=== PATIENT | male | born 1940 | race Caucasian/White ===

== ENCOUNTER 2019-07-21 19:05 | Observation (INO) | payer MEDICARE, SELFPAY ==
--- NOTE | ~2019-07-21 | XR_ITS ---
EXAMINATION: XR bone survey comp/metastic DATE: 07/23/2019 14:37 INDICATION: Multiple myeloma. TECHNIQUE: 28 views of a skeletal survey were obtained. COMPARISON: CT thoracic and lumbar spine 07/21/2019 FINDINGS: There are small lytic lesions in proximal right humerus and right scapula. There are lytic lesions in proximal left humerus. There is a large lytic lesion involving left fourth rib. Surgical c lips in the right upper quadrant are likely from cholecystectomy. There are scattered lytic lesions i n the pelvis and proximal femora. There is a lytic lesion of T11 spinous process. Most of the lytic l esions seen on the prior CT of the spine are not visible on radiographs. IMPRESSION: 1. Lytic lesions of bone, consistent with multiple myeloma. Reviewed, dictated and finalized at location A. F OF PLANNING
--- NOTE | ~2019-07-21 | US_ITS ---
EXAMINATION: 1. CT biopsy bone superficial 2. US soft tissue lower back DATE: 07/22/2019 13:09 INDICATION: Lytic lesion in right ilium. TECHNIQUE: The procedure including the risks, benefits, and alternatives was discussed with the patie nt. Risks discussed included bleeding and infection. The patient verbalized understanding of the risk s and agreed to proceed. The lesion was not well visualized under ultrasound. The patient was then t aken to the CT scanner. The skin overlying the right ilium was prepped and draped in usual sterile fa shion. Anesthetic was administered with 1% lidocaine subcutaneously. A 16 gauge outer needle was ad vanced under CT guidance to the lytic lesion of right ilium. An 18 gauge core biopsy needle was then used to obtain 3 core biopsy specimens. The mA was adjusted according to patient size. Iterative lala nstruction technique was employed. The dose-length product was 115.19 mGy-cm. The needle was removed and the entry site was cleaned and dressed. There were no immediate complications. FINDINGS: Ultrasound images do not show confident visualization of the lytic lesion of right ilium. C T images demonstrate the outer needle tip adjacent to a 2.4 cm mass in right ilium. IMPRESSION: 1. CT-guided core needle biopsy of a 2.4 cm mass in right ilium. Reviewed, dictated and finalized at location A. GER CONFIGURATION IMPRESSION: 1. CT-guided core needle biopsy of a 2.4 cm mass in right ilium.
--- NOTE | ~2019-07-21 | CT_ITS ---
EXAMINATION: CT thoracic lumbar wo con DATE: 07/21/2019 21:14 INDICATION: Back pain TECHNIQUE: Computed tomography (CT) of the second lumbar spine was performed without intravenous cont rast. Sagittal and coronal reconstructions were performed. Automated exposure control and iterative r econstruction technique were employed. The dose-length product was 1030 mGy-cm. COMPARISON: Thoracic and abdominal CTA dated 09/05/2013 FINDINGS: There are innumerable lytic bone lesions throughout the thoracic and lumbar spine as well as multiple ribs, the bilateral scapulae and throughout the pelvis. A few of the largest include lesions occupyi ng a significant portion of the T1, T7 and L3 vertebral bodies, lesion occupying nearly the entire po sterior elements and right posterior vertebral body of T11 and an approximately 3.6 x 2.5 cm lesion i n the right supra-acetabular region. There are also lesions eroding through the cortices at the bilat eral posterior iliac spines, the one on the right which would be the most amenable lesion for percuta neous biopsy. There is a compression fracture underlying the anterior superior endplate of L1 with <20% anterior ve rtebral body height loss. Remaining vertebral body heights and the thoracic and lumbar spine. Relativ jackie preserved with no other fractures identified. There is relatively mild thoracic and lumbar spondy losis. Several of the lytic lesions however extrinsic to the cortices of the vertebrae appear to encr oach upon the central canal which is likely most severely affected at T11. Respiratory motion in the visualized lungs with mild dependent atelectasis in the bilateral lower lob es. No evident pulmonary infiltrates, suspicious pulmonary nodules or pleural effusion. No pathologic ally enlarged lymphadenopathy seen in the visualized mediastinum, abdomen or pelvis. Calcified gallst ones in the dependent aspect of the distal common bile duct. The common bile duct is at the upper schwartz its of normal for age measuring 9 mm in maximal diameter. Numerous dystrophic calcific a cyst. The pa ncreas consistent with sequela of chronic pancreatitis. IMPRESSION: 1. Innumerable lytic bone lesions throughout the axial and appendicular skeleton consistent with mult iple myeloma or widespread metastatic disease. The lesion at the right posterior iliac spine would be the most amenable to percutaneous biopsy. 2. Likely pathologic mild L1 compression fracture with <20% anterior vertebral body height loss. 3. Several of the spinal lesions likely encroach upon the central canal most prominently at T11 where it almost certainly results in significant central canal stenosis. 4. Choledocholithiasis with common bile duct measuring 9 mm at the upper limits of normal for age. Co rrelate with liver function tests. Reviewed, dictated and finalized at location A. OR QC TECHNICIAN IMPRESSION: 1. Innumerable lytic bone lesions throughout the axial and appendicular skeleto n consistent with multiple myeloma or widespread metastatic disease. The lesion at the right posterior iliac spine would be the most amenable to percutaneous biopsy. 2. Likely pathologic mild L1 compression fracture with <20% anterior vertebral body height loss. 3. Several of the spinal lesions likely encroach upon the central canal most pr ominently at T11 where it almost certainly results in significant central canal stenosis. 4. Choledocholithiasis with common bile duct measuring 9 mm at the upper limits of normal for age. Correlate with liver function tests.
[2019-07-21 19:13] VITALS: BP 136/70; PULSE 109; RESP 20; O2SAT 98
--- NOTE | 2019-07-21 19:21 | PC.NURSE ---
After triage-pt stated he was nauseated and felt like he could vomit. also stated he felt weak after taking hie pain meds. states pt is very hard of hearing.
--- NOTE | 2019-07-21 19:22 | PC.NURSE ---
After triage note entered, pt went to waiting room. Pt's stating pt started to feel nauseated and felt like he was goint to vomit. also stated pt took pain meds prior to coming to ED and now feels weak
[2019-07-21 19:47] VITALS: BP 137/71; PULSE 97; RESP 13; O2SAT 97
--- NOTE | 2019-07-21 20:20 | ED.BACK ---
HPI - Back Pain/Injury General Chief Complaint: Back Pain/Injury Stated Complaint: back pain Time Seen by Provider: 07/21/19 20:10 Source: patient, family and RN notes reviewed Mode of arrival: ambulatory Limitations: no limitations History of Present Illness HPI Narrative: Pt is a 79 y/o male who presents to the ED with c/o worsening diffuse low back pain starting several months ago. He notes that he hasn't had any recent falls or injuries within the past several months that could have caused his pain. Pt notes that he has been evaluated by his PCP previously for this pain, and states that he received a negative lumbar spine X-Ray. Pt notes that he is prescribed Hydrocodone for his pain. His family states that his pain only alleviates for roughly 1 hour with the medication. Pt notes that he has been able to walk, but states that doing so aggravates his pain. He also notes that his pain intermittently radiates into his bilateral groin. Pt states that he just began physical therapy earlier today, and notes that his pain worsened shortly after returning home from physical therapy this evening. He currently denies any fever, chills, or urinary symptoms. MD elicited complaint: back pain Onset (ago): month(s) (several) Timing: progressively worsening Location: right lower back and left lower back Radiation: groin (bilateral) Context: unknown Associated symptoms: denies other symptoms Treatments prior to arrival: prescription analgesics (Hydrocodone) Related Data Allergies Allergy/AdvReac Type Severity Reaction Status Date / Time No Known Allergies Allergy Unknown Verified 05/26/18 19:54 Review of Systems Review of Systems: Narrative: CONSTITUTIONAL: Denies fever, chills, or sweats. GASTROINTESTINAL: Denies abdominal pain, nausea, vomiting, or diarrhea. GENITOURINARY: Denies dysuria or hematuria. MUSCULOSKELETAL: Reports diffuse low back pain radiating into bilateral groin. Denies joint pain or myalgia. NEUROLOGIC: Denies headache, numbness, or weakness. All systems reviewed & are unremarkable except as noted in HPI and below PMFSH Past Medical History Medical History (Updated 07/21/19 @ 22:37 by Marie Walden MD) Back pain CAD (coronary artery disease) Diabetes History of angina Myocardial infarction UTI (urinary tract infection) Surgical History Surgical History No significant past surgical history Social History Social History Smoking status: Former smoker Exam Narrative: Exam Narrative: GENERAL: Well-appearing, well-nourished, and in no acute distress. HEAD: Normocephalic, atraumatic. EYES: PERRLA and EOMI. ENT: Nares clear, no rhinorrhea or epistaxis. Mucous membranes dry. NECK: Supple. CHEST: Clear to auscultation. No respiratory distress. HEART: Tachycardic and regular rhythm. No murmur heard. Normal peripheral pulses. ABDOMEN: Soft, nontender, nondistended, normal active bowel sounds. EXTREMITIES: Normal range of motion. No edema. Negative straight leg raise bilaterally. SKIN: Pale, dry, no rash NEURO: No focal deficits. Alert and oriented. Finger to nose intact bilaterally. EOMs intact without nystagmus. No facial droop/asymmetry noted bilaterally. Grimace intact. Intact sensation in face. Hearing intact bilaterally. Shoulder shrug intact. Strength 5/5 bilateral upper extremities. Strength 5/5 bilateral lower extremities. Reflexes 2+ patellar. Heel to neal intact bilaterally. Patient is ambulatory with some assist in the room. Does report midline back pain with ambulation. No ataxia. Course Course Emergency Course: Patient presented for increased fatigue, back pain without known injury. Patient reports he has no history of cancer. Patient's is concerned as patient seems to have decreased energy, difficulty walking very short distances. Patient does not have any reproducible pain on exam. His neurological exam
[2019-07-21 20:32] VITALS: BP 142/71; PULSE 105; RESP 16; O2SAT 98
[2019-07-21] MEDS: KETOROLAC (*BKC) 60 MG/2 ML VIAL 30 MG IM (20:50)
[2019-07-21] MEDS: ACETAMINOPHEN 500 MG TABLET 1000 MG PO (20:50)
[2019-07-21] MEDS: DIAZEPAM 5 MG TABLET PO (20:51)
[2019-07-21] MEDS: DEXAMETHASONE SOD PHOS INJ 4 MG/ML VIAL 10 MG BY MOUTH (20:51)
[2019-07-21 20:59] LABS: Basophils Percent Auto 0.1 % (0.2-1.2); Eosinophils Absolute Auto 0.1 K/mm3 (0-0.3); Eosinophils Percent Auto 1.6 % (0-4.4); Hematocrit 37.7 % (42.0-52.0); Hemoglobin 12.9 g/dL (14.0-18.0); Immature Granulocyte Absolute 0.04 K/mm3 (0.00-0.031); Immature Granulocyte Percent A 0.6 % (0-0.5); Lymphocytes Percent Auto 34.2 % (18.3-44.2); Mean Corpuscular HGB Conc 34.2 g/dl (32-36); Mean Corpuscular Hemoglobin 32.7 pg (26-34); Mean Corpuscular Volume 95.7 fl (80-100); Mean Platelet Volume 10.1 fl (7.4-10.4); Monocytes Absolute Auto 0.4 K/mm3 (0.1-0.6); Monocytes Percent Auto 6.5 % (2.6-8.5); Neutrophils Absolute Auto 3.8 K/mm3 (1.3-6.7); Platelet Count Result 196 k/mm3 (150-375); Red Blood Count 3.94 M/mm3 (4.6-6.20); Red Cell Distribution Width 12.2 % (11.5-14.5); White Blood Count 6.7 K/mm3 (4.5-10.0)
[2019-07-21 21:03] LABS: Blood Urea Nitrogen 14 mg/dL (9-20); Calcium 10.5 mg/dL (8.4-10.2); Carbon Dioxide 29 mmol/L (22-30); Chloride 98 mmol/L (98-107); Estimated CRCL calculation 63 ml/min; Estimated Glomerular Filt Rate > 60; Glucose 122 mg/dL (75-110); Potassium 3.5 mmol/L (3.4-5.0); Sodium 140 mmol/L (137-145)
[2019-07-21] MEDS: SODIUM CHLORIDE 0.9% IV 1,000 ML 999 ML IV CONT (21:04)
--- NOTE | 2019-07-21 21:05 | PC.NURSE ---
pt to CT via stretcher.
[2019-07-21 21:15] LABS: Add Urine Microscopic? YES; Amorphous Sediment Urine Moderate; Appearance Urine Cloudy (Clear); Bacteria Urine Trace /hpf; Bilirubin Urine Negative (Negative); Blood Urine Negative (Negative); Color Urine Yellow (Yellow); Glucose Urine UA Negative (Negative); Ketones Urine 1+ mg/dL (Negative); Leukocyte Esterase Ur 1+ LEU/UL (Negative); Mucus Urine Rare /lpf; Nitrate Urine Negative (Negative); Protein Urine Negative (Negative); RBC Urine 0-2 /hpf (0-2); Specific Grav Ur 1.013 (1.001-1.035); Squamous Epithelial Cell Urine Rare /hpf (Few); Urobilinogen Urine Negative mg/dL (<2.0)
[2019-07-21 21:51] VITALS: BP 135/75; PULSE 103; RESP 18; O2SAT 100
[2019-07-21 22:59] LABS: Alanine Aminotransferase 28 U/L (4-50); Albumin Level 4.4 g/dL (3.5-5.1); Alkaline Phosphatase 103 U/L (38-126); Aspartate Amino Transferase 28 U/L (17-59); Bilirubin,Total 0.8 mg/dL (0.2-1.3)
[2019-07-21 23:12] VITALS: BP 127/78; PULSE 103; RESP 18; O2SAT 98
[2019-07-21 23:43] VITALS: BP 126/80; PULSE 107; RESP 13; O2SAT 96
--- NOTE | 2019-07-21 23:58 | PC.NURSE ---
This patient, Lawrence Singh, was admitted to 2 Medical Room 257-. Patient/family oriented to hospital policies and general routines including ID bracelet, bed and alarms, visiting hours, pain management, procedures, bathroom and other care routines, personal items, smoking policy, room service/diet, and visiting hours. Valuables list has been completed. Information on how to activate the Rapid Response Team has been discussed. Patient/Family are encouraged to report perceived risks to care and to ask questions if they do not understand what they are told or what they should do.
[2019-07-22 00:43] VITALS: BP 130/70; PULSE 112; RESP 20; TEMP 36.3; O2SAT 95; BMI 25.4
[2019-07-22 05:33] LABS: Alanine Aminotransferase 24 U/L (4-50); Albumin Level 3.6 g/dL (3.5-5.1); Alkaline Phosphatase 74 U/L (38-126); Aspartate Amino Transferase 24 U/L (17-59); Bilirubin,Total 0.4 mg/dL (0.2-1.3); Blood Urea Nitrogen 15 mg/dL (9-20); Calcium 9.7 mg/dL (8.4-10.2); Carbon Dioxide 26 mmol/L (22-30); Chloride 104 mmol/L (98-107); Estimated CRCL calculation 59 ml/min; Estimated Glomerular Filt Rate > 60; Glucose 239 mg/dL (75-110); Potassium 4.4 mmol/L (3.4-5.0); Sodium 138 mmol/L (137-145)
[2019-07-22 05:59] VITALS: BP 100/48; PULSE 106; RESP 18; TEMP 36.3; O2SAT 97
[2019-07-22] MEDS: INSULIN ASPART (*BKC) 100 UNITS/ML SUB-Q (09:43)
--- NOTE | 2019-07-22 09:57 | PM.IMHP ---
H&P: HPI History of Present Illness Chief complaint: Back Pain Narrative: Date of Service 07/22/19 0900 The supervising physician for this history and physical is Dr Mirza. Mr. Signh is a 79yo M with history of coronary artery disease, non insulin dependent type 2 diabetes mellitus, and BPH who presented to the ED for evaluation of back pain. He notes lower back pain started a few months ago and has been gradually worsening ever since. He notes that is pain is controlled at time of my exam, and is normally fine at rest but pain increases when he begins to walk or move much. He describes pain all over in the last few months and notes intermittent pain to bilateral lower ribs and his left shoulder that will come and go and move locations. Today he notes some discomfort to right lower rib cage. He denies chest pain or shortness of breath. He vomited once yesterday but denies vomiting at home prior to that and denies nausea this morning. He denies headaches, dizziness, or vision changes. Denies fevers or chills at home. He is quite hard of hearing and at times has trouble following commands during exam. He has had urinary frequency for years which he attributes to his BPH and notes his tamsulosin helps. He denies any issues with urinary incontinence or retention. Denies bowel incontinence. He denies numbness or tingling to either upper or lower extremities, specifically none in upper thighs. CT thoracic and lumbar spine shows innumerable lytic bone lesions throughout the axial and appendicular skeleton consistent with multiple myeloma or widespread metastatic disease, likely pathologic mild L1 compression fracture, several spinal lesions likely enroaching upon the central canal most prominently at T11 where almost certainly results in significant central canal stenosis. Dr. Melo had been consulted from the ED and bone biopsy was ordered by ED provider. Patient is admitted to observation for evaluation of these lytic lesions and back pain. Review of Systems Review of Systems: Narrative: He describes lower back pain that began a few months ago and has gradually worsened. He denies bowel or bladder incontinence or saddle anesthesia. Denies numbness or tingling in any extremity. He is able to ambulate, but this does worsen his pain. He denies chest pain or shortness of breath. He denies nausea. One episode of emesis yesterday. He denies hematochezia, melena, or hematemesis. Last BM was this morning and looked normal for him. Twelve systems were reviewed with pertinent positives and negatives as per HPI. [facility] Past Medical History Medical History (Updated 07/22/19 @ 12:41 by Beronica Patino PA-C) Back pain CAD (coronary artery disease) Diabetes History of angina Myocardial infarction UTI (urinary tract infection) Surgical History Surgical History (Updated 07/22/19 @ 12:28 by Beronica Patino PA-C) H/O heart artery stent 2013; Stent to LAD Hx of cholecystectomy 2015 Family History Family History (Updated 07/22/19 @ 12:29 by Beronica Patino PA-C) Father Acute myocardial infarction Diabetes mellitus Mother Cerebrovascular accident Multiple CVAs Sibling Acute myocardial infarction Cerebrovascular accident Sibling Breast cancer Social History Social History (Updated 07/22/19 @ 12:32 by Beronica Patino PA-C) Social History: Mr. Singh lives at home with his , Ciarra, in [place] and is retired from working as a reach lift truck driver. He is a former smoker and smoked about 1ppd cigarettes for 15 years and quit in . He denies alcohol or other substance use. His primary care provider is Dr Rodrigo Martinez in [facility]. He designates his , Ciarra Singh, as his surrogate decision maker. He notes himself to be full code status but would not like to be on a ventilator or other life support for a long period of time. Smoking packs per day: 1 Smoking cigarettes per day: 20.0 Years smoked: 15 Smoking
[2019-07-22 10:37] LABS: Glucose Point of Care 238 (65-105)
[2019-07-22 12:21] VITALS: BMI 25.4
[2019-07-22 14:00] VITALS: BP 110/54; PULSE 107; RESP 16; TEMP 36.4; O2SAT 95
[2019-07-22 14:23] LABS: Glucose Point of Care 154 (65-105)
[2019-07-22] MEDS: PANTOPRAZOLE 40 MG TABLET PO (14:41)
[2019-07-22] MEDS: metFORMIN HCL XR 500 MG TAB.SR.24H PO (14:41)
[2019-07-22] MEDS: TIZANIDINE HCL 2 MG TABLET PO (14:42)
[2019-07-22] MEDS: PRAVASTATIN SODIUM 20 MG TABLET 40 MG PO (17:03)
[2019-07-22] MEDS: TAMSULOSIN HCL 0.4 MG CAPSULE PO (17:03)
[2019-07-22 18:20] LABS: Immunoglobulin A 344 mg/dL (70-400); Immunoglobulin G 329 mg/dL (700-1600)
[2019-07-22 18:31] LABS: Glucose Point of Care 189 (65-105)
[2019-07-22 18:38] LABS: Immunoglobulin M < 25 mg/dL (40-230)
[2019-07-22] MEDS: ONDANSETRON HCL ODT 4 MG TABLET PO ×2 (19:01→23:39)
[2019-07-22] MEDS: CALCIUM CARBONATE (TUMS) 500 MG (200 MG ELEMENTAL) PO ×2 (19:02→21:29)
[2019-07-22 22:00] VITALS: BP 122/63; PULSE 102; RESP 22; TEMP 36.4; O2SAT 96
[2019-07-22 22:47] LABS: Glucose Point of Care 162 (65-105)
--- NOTE | 2019-07-23 05:13 | CONS_ITS ---
DATE OF CONSULTATION: 07/22/2019 REASON FOR CONSULTATION: Lytic bone lesion. HISTORY OF PRESENT ILLNESS: This is a 79-year-old male with history of type 2 diabetes and coronary artery disease, came into the hospital with worsening lower back pain for at least 1 month duration. He lost almost 13-pound weight in last 6 months duration. He denies any diarrhea, constipation, and bleeding. He denies any fever, chills, and night sweats. He denies any cough. The patient is hard of hearing. The patient had CT scan of thoracic and lumbar spine done that showed multiple lytic bone lesions throughout the axial and appendicular skeleton consistent with multiple myeloma or widespread metastatic disease. There was mild L1 compression fracture. The patient denies any previous history of malignancy. He denies any neuropathy. He has no other new complaints. REVIEW OF SYSTEMS: 12-point review of system was reviewed and as per HPI, otherwise negative. PAST MEDICAL HISTORY: Diabetes, coronary artery disease, myocardial infarction, history of UTI, chronic lower back pain. PAST SURGICAL HISTORY: coronary artery disease status post stent placement and cholecystectomy. FAMILY HISTORY: One sister had breast cancer. SOCIAL HISTORY: The patient is , lives with the . He quit smoking in 1979. HOME MEDICATIONS: Reviewed. ALLERGIES: REVIEWED. PHYSICAL EXAMINATION: GENERAL: This patient is a well-developed, well-nourished male, in no apparent distress. Oriented and alert. VITAL SIGNS: Per nursing note. HEENT: Normocephalic, atraumatic. Clear oropharynx. LUNGS: Clear to auscultation bilaterally. CARDIOVASCULAR: Regular rate and rhythm. No murmurs. ABDOMEN: Soft, nontender, nondistended. Bowel sounds are positive in all 4 quadrants. No hepatosplenomegaly. EXTREMITIES: No edema. NEURO: Grossly intact. LABORATORY DATA: WBC 6.7, hemoglobin 12.9, platelet 196,000, neutrophils 57%, lymphocytes 34%. Creatinine 0.9, total bilirubin 0.4. Calcium was elevated at 10.5, now 9.7, total protein 6.0. ASSESSMENT AND PLAN: Multiple lytic lesions. The patient is a pleasant 79-year-old male presented with chronic lower back pain, worsening for last 1 month duration with 13-pound weight loss. The patient has a history of smoking, but quit in 1980. The patient denies any personal history of malignancy. CT thoracolumbar spine was performed that showed multiple lytic lesions throughout the axial and appendicular skeleton consistent with multiple myeloma or widespread metastatic disease. The patient had CT-guided biopsy of 2.4 cm mass in the right ilium done today. Pathology is pending. I will order serum protein electrophoresis with immunofixation along with quantitative immunoglobulin level and serum free light chain studies. Based on the biopsy report and initial lab testing, we will decide about performing a CT scan to look for any other site of primary disease. I have answered all the questions of the patient and the family satisfaction and provided them with my office information. JACKIE NEWELL M.D. CIGAR PACKING EXAMINER CIGAR PACKING EXAMINER D Hema MT: [place]
[2019-07-23 05:55] VITALS: BP 117/66; PULSE 100; RESP 20; TEMP 36.3; O2SAT 95
[2019-07-23 06:04] LABS: Blood Urea Nitrogen 15 mg/dL (9-20); Calcium 9.1 mg/dL (8.4-10.2); Carbon Dioxide 27 mmol/L (22-30); Chloride 100 mmol/L (98-107); Estimated CRCL calculation 59 ml/min; Estimated Glomerular Filt Rate > 60; Glucose 128 mg/dL (75-110); Potassium 4.1 mmol/L (3.4-5.0); Sodium 139 mmol/L (137-145)
[2019-07-23 06:06] LABS: Basophils Percent Auto 0.1 % (0.2-1.2); Eosinophils Absolute Auto 0.1 K/mm3 (0-0.3); Eosinophils Percent Auto 0.7 % (0-4.4); Hematocrit 32.3 % (42.0-52.0); Hemoglobin 10.9 g/dL (14.0-18.0); Immature Granulocyte Absolute 0.03 K/mm3 (0.00-0.031); Immature Granulocyte Percent A 0.4 % (0-0.5); Lymphocytes Absolute Auto 1.56 K/mm3 (0.9-3.2); Lymphocytes Percent Auto 20.5 % (18.3-44.2); Mean Corpuscular HGB Conc 33.7 g/dl (32-36); Mean Corpuscular Hemoglobin 32.8 pg (26-34); Mean Corpuscular Volume 97.3 fl (80-100); Mean Platelet Volume 9.9 fl (7.4-10.4); Monocytes Absolute Auto 0.6 K/mm3 (0.1-0.6); Monocytes Percent Auto 7.9 % (2.6-8.5); Neutrophils Absolute Auto 5.4 K/mm3 (1.3-6.7); Neutrophils Percent Auto 70.4 % (45.5-73.1); Platelet Count Result 155 k/mm3 (150-375); Red Blood Count 3.32 M/mm3 (4.6-6.20); Red Cell Distribution Width 12.6 % (11.5-14.5); White Blood Count 7.6 K/mm3 (4.5-10.0)
[2019-07-23] MEDS: TIZANIDINE HCL 2 MG TABLET PO (08:45)
[2019-07-23] MEDS: PANTOPRAZOLE 40 MG TABLET PO (08:45)
[2019-07-23] MEDS: ASPIRIN 81 MG CHEWABLE TABLET PO (08:45)
[2019-07-23] MEDS: CLOPIDOGREL BISULFATE 75 MG TABLET PO (08:46)
[2019-07-23 09:40] LABS: Glucose Point of Care 128 (65-105)
[2019-07-23] MEDS: ONDANSETRON HCL ODT 4 MG TABLET PO (09:56)
[2019-07-23] MEDS: metFORMIN HCL XR 500 MG TAB.SR.24H PO (09:57)
[2019-07-23 10:47] VITALS: BP 92/50; PULSE 89; RESP 16; TEMP 36.2; O2SAT 95
[2019-07-23 13:20] LABS: Glucose Point of Care 143 (65-105)
[2019-07-23 13:31] VITALS: BP 104/58; PULSE 73; RESP 16; TEMP 36.4; O2SAT 94
--- NOTE | 2019-07-23 15:41 | PCPTNOTE ---
The PT treatment was unable to be completed today. Will continue per Plan of Care frequency and duration.
--- NOTE | 2019-07-24 05:08 | PM.DS ---
DS: Diagnosis Admitting Diagnosis Admitting Diagnosis: Other specified disorders of bone, thigh Discharge Diagnosis (1) Lytic bone lesion of hip: Code(s): M89.8X5 - Other specified disorders of bone, thigh Status: Acute Assessment and Plan: Date of Service 07/23/19: Mr. Singh is a 79 yo male with history of coronary artery disease and non insulin dependent type 2 diabetes mellitus who presented to the ER for evaluation of back pain. Patient reports back pain had been ongoing for at least 2 months and was worsening over time. CT of thoracic and lumbar spine revealed innumerable lytic lesions throughout the spine, pelvis, ribs, and scapulae concerning for multiple myeloma vs. widespread metastatic disease; possible central canal stenosis as a result. Patient denied any extremity numbness or tingling; no bowel or bladder dysfunction or saddle anesthesia. Dr Melo, Oncology, was consulted and he underwent a CT-guided core needle biopsy of a 2.4cm mass in right ilium 07/22/19. Pathology reports still pending at time of discharge. IgG and IgM were low which may be consistent with multiple myeloma, but serum immunofixation, protein electrophoresis with light chain testing were also pending at time of discharge. Bone survey was performed, detailed report below. Patient worked with PT/OT and has outpatient PT/OT set up already which he can continue due to his back pain. His noted she and the patient have help at home from their children and was agreeable for discharge home. He was maintained on tylenol and Mona for pain control. He did have a little trouble following directions during neurologic exam; I am unsure of his cognitive baseline but he is noted to be quite hard of hearing which may have contributed as well. He was hemodynamically stable for discharge 07/23/19 with plans to follow up with Dr Melo for further management and follow up with PCP Dr Rodrigo Martinez. Consultations: Oncology - Dr Melo (2) Hypercalcemia: Code(s): E83.52 - Hypercalcemia Status: Acute Assessment and Plan: May be related to above. Resolved prior to discharge. Can be monitored outpatient. (3) CAD (coronary artery disease): Qualifiers: Coronary Disease-Associated Artery/Lesion type: [place] artery [place] vs. transplanted heart: [place] heart Associated angina: without angina Qualified Code(s): I25.10 - Atherosclerotic heart disease of [place] coronary artery without angina pectoris Code(s): I25.10 - Atherosclerotic heart disease of [place] coronary artery without angina pectoris Status: Acute Assessment and Plan: H/O [place] 2013. Stable, no chest pain. Home Plavix and ASA held in light of his biopsy, resumed after procedure. (4) Diabetes: Qualifiers: Diabetes mellitus type: type 2 Diabetes mellitus termite inspector insulin use: without shelter use Diabetes mellitus complication status: without complication Qualified Code(s): E11.9 - Type 2 diabetes mellitus without complications Code(s): E11.9 - Type 2 diabetes mellitus without complications Status: Acute Assessment and Plan: Blood sugars stable, continue home metformin. DS: Summary Time Spent with Patient Time attestation: Total time spent providing and/or coordinating discharge services: 45 minutes Exam Narrative: Exam Narrative: General: Well-developed male resting supine in bed in no acute distress, sits up onto the edge of the bed without much difficulty during exam. HEENT: Normocephalic, atraumatic, EOMI, PERRL, oropharynx clear. Neck: Supple, no notable lymphadenopathy. Chest: Lungs clear to auscultation. Respirations are even and nonlabored. Tolerating room air. Heart: Heart rate and rhythm regular. Abdomen: Soft, nontender, nondistended, bowel sounds present. Extremities: No edema
[2019-07-28 00:05] LABS: Kappa\\Lambda Light Chains 0.02 (0.26-1.65); Lambda Light Chain 524.3 mg/L (5.7-26.3)
[2019-07-28 22:04] LABS: Albumin 3.4 g/dL (3.8-4.8); Alpha 1 Globulin 0.3 g/dL (0.2-0.3); Alpha 2 Globulin 0.6 g/dL (0.5-0.9); Beta 1 Globulin 0.4 g/dL (0.4-0.6); Gamma Globulin 0.4 g/dL (0.8-1.7); Protein, Total 5.6 g/dL (6.1-8.1)
== END 2019-07-23 16:40 | disposition home or self-care (01) ==
LOC: ANHED 22:37 → ANH2MED 23:18
PROVIDERS: Internal Medicine Hematology & Oncology; Physician Assistant; Admitting Provider Internal Medicine; Emergency Provider Emergency Medicine; Visit Provider Family Medicine
DX: M89.8X5 Other specified disorders of bone, thigh (principal); E83.52 Hypercalcemia; I25.10 Atherosclerotic heart disease of native coronary artery without angina pectoris; E11.9 Type 2 diabetes mellitus without complications; N40.0 Benign prostatic hyperplasia without lower urinary tract symptoms; I25.2 Old myocardial infarction; Z79.84 Long term (current) use of oral hypoglycemic drugs; Z79.899 Other long term (current) drug therapy; Z87.891 Personal history of nicotine dependence; Z95.5 Presence of coronary angioplasty implant and graft
CPT/HCPCS: 20220; 36415; 72128; 72131; 76705; 77012; 77075; 80048; 80053; 80076; 81001; 82784; 83883; 84155; 84165; 85025; 86334; 88307; 88342; 88364; 88365; 96360; 96372; 97161; 97165; 99285; A9270; G0378; J1100; J1815; J1885; J7030